=== PATIENT | male | born 1960 | race Caucasian/White ===

== ENCOUNTER → 2018-06-05 13:37 | Outpatient (CLI) | payer OTHER, SELFPAY ==
[2018-06-05 15:17] LABS: Alanine Aminotransferase 38 IU/L (21-72); Albumin 4.5 g/dL (3.5-5.0); Albumin Globulin Ratio 1.5 (1.0-2.8); Alkaline Phosphatase 79 U/L (38-126); Aspartate Aminotransferase 28 IU/L (17-59); BUN Creatinine Ratio 13.6 (6-22); Bilirubin Total 0.7 mg/dL (0.2-1.3); Blood Urea Nitrogen 15 mg/dL (9-20); Calcium 9.7 mg/dL (8.4-10.2); Carbon Dioxide 31 mmol/L (22-32); Chloride 101 mmol/L (98-107); Estimated Glomerular Filt Rate > 60.0 mL/min (>60); Globulin 3.1 g/dL (1.7-4.1); Glucose 90 mg/dL (70-100); HEMOLYSIS < 15 (0-50); Potassium 4.6 mmol/L (3.4-5.1); Sodium 145 mmol/L (137-145); Total Protein 7.6 g/dL (6.3-8.2)
[2018-06-05 15:39] LABS: Hemoglobin A1C% w Est Avg Glu 9.3 % (4.0-6.0)
== END ==
PROVIDERS: Visit Provider Internal Medicine
DX: E11.649 Type 2 diabetes mellitus with hypoglycemia without coma (principal)
CPT/HCPCS: 36415; 80053; 83036

== ENCOUNTER → 2018-10-26 13:19 | Outpatient (CLI) | payer OTHER, SELFPAY ==
[2018-10-26 17:17] LABS: Hemoglobin A1C% w Est Avg Glu 9.1 % (4.0-6.0)
== END ==
PROVIDERS: Visit Provider Internal Medicine
DX: E11.8 Type 2 diabetes mellitus with unspecified complications (principal)
CPT/HCPCS: 36415; 83036

== ENCOUNTER → 2019-01-22 13:18 | Outpatient (CLI) | payer OTHER, SELFPAY ==
[2019-01-22 14:08] LABS: Hemoglobin A1C% w Est Avg Glu 10.1 % (4.0-6.0)
[2019-01-22 14:40] LABS: BUN Creatinine Ratio 12.7 (6-22); Blood Urea Nitrogen 14 mg/dL (9-20); Calcium 9.5 mg/dL (8.4-10.2); Carbon Dioxide 31 mmol/L (22-32); Chloride 99 mmol/L (98-107); Cholesterol 183 mg/dL (140-199); Estimated Glomerular Filt Rate > 60.0 mL/min (>60); Glucose 187 mg/dL (70-100); HDL Cholesterol 34 mg/dL (40-60); HEMOLYSIS < 15 (0-50); LDL Cholesterol Calculated 89 mg/dL (<100); Potassium 4.7 mmol/L (3.4-5.1); Sodium 138 mmol/L (137-145); Triglycerides 299 mg/dL (35-150)
== END ==
PROVIDERS: Visit Provider Internal Medicine
DX: E78.5 Hyperlipidemia, unspecified (principal); E11.8 Type 2 diabetes mellitus with unspecified complications
CPT/HCPCS: 36415; 80048; 80061; 83036

== ENCOUNTER → 2020-08-01 15:01 | Outpatient (CLI) | payer OTHER, MEDICAID, SELFPAY ==
[2020-08-10 05:10] LABS: Varicella Zoster PCR Positive (Negative)
== END ==
PROVIDERS: Visit Provider Physician Assistant
DX: H57.89 Other specified disorders of eye and adnexa (principal); R21 Rash and other nonspecific skin eruption
CPT/HCPCS: 87070; 87075; 87077; 87186; 87205; 87252; 87798

== ENCOUNTER → 2020-11-02 13:01 | Outpatient (CLI) | payer OTHER, MEDICAID, SELFPAY ==
[2020-11-02] MEDS: COVID-19 VACC, Ad26(JANSSEN)/PF 0.5 ML IM (13:32)
== END ==
PROVIDERS: Visit Provider Internal Medicine
DX: Z23 Encounter for immunization (principal)
CPT/HCPCS: 0031A; 91303

== ENCOUNTER 2020-12-28 10:20 | Emergency (ER) | payer OTHER, MEDICAID, SELFPAY ==
[2020-12-28] VITALS (11 sets, daily range): BP systolic 131–157; BP diastolic 71–96; PULSE 79–92; RESP 13–30; TEMP 37.1; O2SAT 98–100; BMI 27.3
--- NOTE | 2020-12-28 10:32 | ED.GENADULT ---
HPI - General Adult General Chief complaint: Neuro Symptoms/Deficit Stated complaint: stroke Time Seen by Provider: 12/28/20 10:21 Source: patient Mode of arrival: Ambulatory Limitations: no limitations History of Present Illness HPI narrative: Patient is a 60-year-old male who med 3 days ago was seen at an outside facility for evaluation of dizziness and slurred speech. During that visit he was evaluated for stroke. Had a CT scan and an MRI which did show a nonocclusive thrombus in the proximal M1 segment of the left middle cerebral artery. He was not a candidate for tPA. His NIH score was recorded as is 0 at that visit. Stroke Neurology was consulted. He was recommended that he be admitted to the hospital however the patient did leave against medical advice. He was started on aspirin and Plavix and atorvastatin. Patient states that he was feeling well after discharge even up until last evening. Went to bed last evening feeling normal however woke up this morning with problems speaking. He tried to contact his primary doctor whom he has an appointment with tomorrow however could not speak and so was advised to come to the emergency department. Other than problems speaking he denies any other associated symptoms. He states he woke up this morning with the symptoms. Related Data Home Medications Medication Instructions Recorded Confirmed gabapentin 300 mg PO BID #0 07/16/17 multivitamin [Multiple Vitamins] 1 tab PO QDAY #0 07/16/17 Previous Rx's Medication Instructions Recorded acetaminophen 0 mg PO Q4HP PRN #30 tab 07/23/17 ampicillin-sulbactam [Unasyn] 3 gm IV Q6H 7 Days #0 ml 07/23/17 glipizide [Glucotrol XL] 5 mg PO [facility] #30 tab 07/23/17 metformin [Glucophage XR] 1,000 mg PO BID #60 tab 07/23/17 Allergies Allergy/AdvReac Type Severity Reaction Status Date / Time No Known Drug Allergies Allergy Verified 12/28/20 10:34 Review of Systems Constitutional Constitutional: Denies headache(s) Eyes Eyes: Reports change in vision (Some change of vision of his left eye) ENT Ears, Nose, Mouth, and Throat: Denies vertigo, Denies dizziness, Denies headache(s), Denies disequilibrium and Denies sore throat Cardiovascular Cardiovascular: Denies chest pain, Denies syncope and Denies dyspnea Respiratory Respiratory: Denies dyspnea Gastrointestinal Gastrointestinal: Denies abdominal pain, Denies nausea and Denies vomiting Genitourinary Genitourinary: Denies dysuria Genitourinary: Denies dysuria Musculoskeletal Musculoskeletal: Denies arthralgias Integumentary/Breasts Skin/Breast: Denies rash Neurologic Neurologic: Reports abnormal speech, Denies confusion, Denies vertigo, Denies dizziness, Denies syncope, Denies headache(s) and Denies disequilibrium Psychiatric Psychiatric: Denies confusion Hematologic/Lymphatic On Anticoagulants: No Patient History Medical History Shingles of eyelid Social History Smoking Status: Unknown if ever smoked Exam Initial Vital Signs Initial Vital Signs: Vital Signs Pulse Rate 92 H 12/28/20 10:24 Respiratory Rate 20 12/28/20 10:24 Blood Pressure 143/96 H 12/28/20 10:24 Pulse Oximetry 99 12/28/20 10:24 Const General: cooperative and comfortable Limitations: mental status not altered HENW[place] Head: normal to inspection and normocephalic Nose: external nose normal Mouth: oral mucosae normal Eyes Pupils: PERRL Resp Effort & Inspection: normal respiratory effort Auscultation: clear to auscultation bilaterally Cardio Rate: regular rate Rhythm: regular rhythm GI Inspection: non-distended Palpation: soft Skin Lesions: no lesions Rashes: no rashes Neuro General: patient alert, patient awake and patient oriented x3 Speech: abnormal speech Motor: muscle tone normal throughout Sensory Exam: no sensory deficits noted Extrem General: capillary refill normal Psych Appearance: grossly normal and well kempt Scores GCS Weston coma scale eye opening: Spontaneous Weston coma scale verbal response: Orientated Dandy coma scale motor response: Obey commands Weston coma scale total score: 15 NIH Stroke Scale Level of Conciousness: Alert, keenly responsive Ask month/age: Answers both questions correctly. Open/close eyes, close hand: Performs both tasks correctly Best gaze horizontal: Normal Visual [place]: No visual loss Facial palsy: Minor paralysis, flattened nasolabial fold, asymmetry on smiling Left arm drift: No drift for full 10 sec Right arm drift: No drift for full 10 sec Left leg drift: No drift for full 5 sec Right leg drift: No drift for full 5 sec Limb ataxia: Absent Sensory on face/arms/legs: Normal, no sensory loss Best language: Mild to moderate, slurs some words Dysarthria: Mild to mod,some slurring Extinction or inattention: No abnormality Total NIH Stroke scale score: 3 Course Orders Ordered: ED Orders 12/28/20 10:34 EKG-12 Lead Stat 12/28/20 10:37 CT head/brain wo con Stat 12/28/20 10:38 CT angio head and neck Stat 12/28/20 10:41 COVID19 - ADMIT (CUFF SETTER OVERLOCK swab/PCR) Stat 12/28/20 10:45 Ammonia (NH3) Stat Complete Blood Count AUTO DIFF Stat Comprehensive Metabolic Panel Stat Ethanol (ETOH) Stat Lipase Stat Partial Thromboplastin Time Stat Prothrombin Time INR Stat Thyroid Stimulating Hormone Stat Troponin & CK Cardiac Panel Stat 12/28/20 13:20 Urinalysis and Microscopic Stat Urine Drug Screen, Rapid Stat Discontinued Medications Aspirin (Aspirin 81 Mg Chew Tab) 324 mg PO NOW ONE Stop: 12/28/20 13:41 Last Admin: 12/28/20 13:47 Dose: 324 mg Documented by: MILES Clopidogrel Bisulfate (Clopidogrel 75 Mg Tablet) 300 mg PO NOW ONE Stop: 12/28/20 13:41 Last Admin: 12/28/20 13:47 Dose: 300 mg Documented by: MILES Vital Signs Vital signs: Vital Signs - 8 hr 12/28/20 10:24 12/28/20 10:25 12/28/20 10:30 Temperature 98.7 F Pulse Rate 92 H 85 86 Respiratory Rate 20 14 20 Blood Pressure 143/96 H 143/96 H 151/90 H Pulse Oximetry 99 100 100 12/28/20 11:00 12/28/20 11:03 12/28/20 11:30 Temperature Pulse Rate 82 79 80 Respiratory Rate 15 13 22 Blood Pressure 157/77 H 154/77 H 131/71 Pulse Oximetry 98 99 99 12/28/20 12:00 12/28/20 12:30 12/28/20 12:34 Temperature Pulse Rate 81 79 86 Respiratory Rate 16 13 30 H Blood Pressure 132/73 155/88 H Pulse Oximetry 98 99 99 12/28/20 13:00 12/28/20 13:30 Temperature Pulse Rate 82 82 Respiratory Rate 14 15 Blood Pressure 143/87 H Pulse Oximetry 99 98 Medical Decision Making Medical Records Medical records reviewed: Yes I reviewed the patient's medical records. Lab Data Lab results reviewed: Yes I reviewed the patient's lab results. Result diagrams: 12/28/20 10:45 12/28/20 10:45 Labs: Lab Results 12/28/20 12/28/20 12/28/20 Range/Units 10:41 10:45 10:45 WBC 5.8 (4.5-11.0) X10^3/uL RBC 4.73 (4.5-5.9) X10^6/uL Hgb 14.6 (13.5-17.5) g/dL Hct 42.4 (41-53) % MCV 89.5 (80-100) fL MCH 30.8 (26-34) PG MCHC 34.4 (30-36) % RDW 12.3 (11.6-14.8) % Plt Count 292 (150-400) X10^3/uL Neut % (Auto) 51.0 (50-75) % Lymph % (Auto) 35.7 (25-40) % [place] % (Auto) 8.8 (3-14) % Eos % (Auto) 3.7 (2-4) % Baso % (Auto) 0.8 (0-2) % Neut # (Auto) 2900 (3289-6117) /uL Lymph # (Auto) 2100 (3745-3851) /uL [place] # (Auto) 500 (0-900) /uL Eos # (Auto) 200 (0-450) /uL Baso # (Auto) 0 (0-100) /uL PT (10.1-12.7) SECONDS INR (0.9-1.3) APTT (26.4-36.2) SECONDS Sodium 137 (137-145) mmol/L Potassium 3.9 (3.4-5.1) mmol/L Chloride 99 (98-107) mmol/L Carbon Dioxide 28 (22-32) mmol/L BUN 16 (9-20) mg/dL Creatinine 1.13 (0.66-1.25) mg/dL Estimated GFR > 60.0 (>60) mL/min BUN/Creatinine Ratio 14.2 (6-22) Glucose 259 H (80-110) mg/dL Calcium 9.7 (8.4-10.2) mg/dL Total Bilirubin 0.6 (0.2-1.3) mg/dL AST 22 (17-59) IU/L ALT 16 (<50) IU/L Alkaline Phosphatase 73 (38-126) U/L Ammonia (9-30) umol/L Total Creatine Kinase (55-170) U/L CK-MB (CK-2) CK-MB (CK-2) Rel Index Troponin I (0.01-0.034) ng/mL Total Protein 7.8 (6.3-8.2) g/dL Albumin 4.3 (3.5-5.0) g/dL Globulin 3.5 (1.7-4.1) g/dL Albumin/Globulin Ratio 1.2 (1.0-2.8) Lipase (23-300) U/L TSH (0.47-4.68) uIU/mL Urine Color Urine Appearance Urine pH (4.5-8.0) Ur Specific [place] (1.000-1.035) Urine Protein (Negative) Urine Glucose (UA) (Negative) g/dL Urine Ketones (NEGATIVE) Urine Occult Blood (Negative) Urine Nitrate (Negative) Urine Bilirubin (NEGATIVE) Urine Urobilinogen (0.2) E.U./dL Ur Leukocyte Esterase (NEGATIVE) Urine RBC (0-5/HPF) Urine WBC (0-5/HPF) Urine Bacteria (None) Ur Culture Indicated? U Opiates 300ng/mL cut (Negative) Ur Oxycodone Screen (Negative) Urine Methadone Screen (Negative) Ur Barbiturates Screen (Negative) U Tricyclic Antidepress (Negative) Ur Phencyclidine Scrn (Negative) Ur Amphetamines Screen (Negative) U Methamphetamines Scrn (Negative) Ur MDMA Scrn (Ecstasy) (Negative) U Benzodiazepines Scrn (Negative) Urine Cocaine Screen (Negative) U Marijuana (THC) Screen (Negative) Ethyl Alcohol ( - 10) mg/dL SARS-CoV-2 (PCR) Negative (Negative) 12/28/20 12/28/20 12/28/20 Range/Units 10:45 10:45 10:45 WBC (4.5-11.0) X10^3/uL RBC (4.5-5.9) X10^6/uL Hgb (13.5-17.5) g/dL Hct (41-53) % MCV (80-100) fL MCH (26-34) PG MCHC (30-36) % RDW (11.6-14.8) % Plt Count (150-400) X10^3/uL Neut % (Auto) (50-75) % Lymph % (Auto) (25-40) % [place] % (Auto) (3-14) % Eos % (Auto) (2-4) % Baso % (Auto) (0-2) % Neut # (Auto) (4192-3749) /uL Lymph # (Auto) (3953-5243) /uL [place] # (Auto) (0-900) /uL Eos # (Auto) (0-450) /uL Baso # (Auto) (0-100) /uL PT 11.5 (10.1-12.7) SECONDS INR 1.0 (0.9-1.3) APTT 38 H (26.4-36.2) SECONDS Sodium (137-145) mmol/L Potassium (3.4-5.1) mmol/L Chloride (98-107) mmol/L Carbon Dioxide (22-32) mmol/L BUN (9-20) mg/dL Creatinine (0.66-1.25) mg/dL Estimated GFR (>60) mL/min BUN/Creatinine Ratio (6-22) Glucose (80-110) mg/dL Calcium (8.4-10.2) mg/dL Total Bilirubin (0.2-1.3) mg/dL AST (17-59) IU/L ALT (<50) IU/L Alkaline Phosphatase (38-126) U/L Ammonia < 9 L (9-30) umol/L Total Creatine Kinase 57 (55-170) U/L CK-MB (CK-2) TNP CK-MB (CK-2) Rel Index TNP Troponin I 0.016 (0.01-0.034) ng/mL Total Protein (6.3-8.2) g/dL Albumin (3.5-5.0) g/dL Globulin (1.7-4.1) g/dL Albumin/Globulin Ratio (1.0-2.8) Lipase 62 (23-300) U/L TSH (0.47-4.68) uIU/mL Urine Color Urine Appearance Urine pH (4.5-8.0) Ur Specific Mason (1.000-1.035) Urine Protein (Negative) Urine Glucose (UA) (Negative) g/dL Urine Ketones (NEGATIVE) Urine Occult Blood (Negative) Urine Nitrate (Negative) Urine Bilirubin (NEGATIVE) Urine Urobilinogen (0.2) E.U./dL Ur Leukocyte Esterase (NEGATIVE) Urine RBC (0-5/HPF) Urine WBC (0-5/HPF) Urine Bacteria (None) Ur Culture Indicated? U Opiates 300ng/mL cut (Negative) Ur Oxycodone Screen (Negative) Urine Methadone Screen (Negative) Ur Barbiturates Screen (Negative) U Tricyclic Antidepress (Negative) Ur Phencyclidine Scrn (Negative) Ur Amphetamines Screen (Negative) U Methamphetamines Scrn (Negative) Ur MDMA Scrn (Ecstasy) (Negative) U Benzodiazepines Scrn (Negative) Urine Cocaine Screen (Negative) U Marijuana (THC) Screen (Negative) Ethyl Alcohol < 10 ( - 10) mg/dL SARS-CoV-2 (PCR) (Negative) 12/28/20 12/28/20 12/28/20 Range/Units 10:45 13:20 13:20 WBC (4.5-11.0) X10^3/uL RBC (4.5-5.9) X10^6/uL Hgb (13.5-17.5) g/dL Hct (41-53) % MCV (80-100) fL MCH (26-34) PG MCHC (30-36) % RDW (11.6-14.8) % Plt Count (150-400) X10^3/uL Neut % (Auto) (50-75) % Lymph % (Auto) (25-40) % [place] % (Auto) (3-14) % Eos % (Auto) (2-4) % Baso % (Auto) (0-2) % Neut # (Auto) (4158-5337) /uL Lymph # (Auto) (4848-3977) /uL [place] # (Auto) (0-900) /uL Eos # (Auto) (0-450) /uL Baso # (Auto) (0-100) /uL PT (10.1-12.7) SECONDS INR (0.9-1.3) APTT (26.4-36.2) SECONDS Sodium (137-145) mmol/L Potassium (3.4-5.1) mmol/L Chloride (98-107) mmol/L Carbon Dioxide (22-32) mmol/L BUN (9-20) mg/dL Creatinine (0.66-1.25) mg/dL Estimated GFR (>60) mL/min BUN/Creatinine Ratio (6-22) Glucose (80-110) mg/dL Calcium (8.4-10.2) mg/dL Total Bilirubin (0.2-1.3) mg/dL AST (17-59) IU/L ALT (<50) IU/L Alkaline Phosphatase (38-126) U/L Ammonia (9-30) umol/L Total Creatine Kinase (55-170) U/L CK-MB (CK-2) CK-MB (CK-2) Rel Index Troponin I (0.01-0.034) ng/mL Total Protein (6.3-8.2) g/dL Albumin (3.5-5.0) g/dL Globulin (1.7-4.1) g/dL Albumin/Globulin Ratio (1.0-2.8) Lipase (23-300) U/L TSH 1.69 (0.47-4.68) uIU/mL Urine Color Yellow Urine Appearance Clear Urine pH 7.0 (4.5-8.0) Ur Specific [place] 1.010 (1.000-1.035) Urine Protein Negative (Negative) Urine Glucose (UA) 1+ H (Negative) g/dL Urine Ketones Negative (NEGATIVE) Urine Occult Blood Negative (Negative) Urine Nitrate Negative (Negative) Urine Bilirubin Negative (NEGATIVE) Urine Urobilinogen 0.2 (0.2) E.U./dL Ur Leukocyte Esterase Negative (NEGATIVE) Urine RBC None seen (0-5/HPF) Urine WBC 0-1/hpf (0-5/HPF) Urine Bacteria None seen (None) Ur Culture Indicated? Cult not indicated U Opiates 300ng/mL cut Negative (Negative) Ur Oxycodone Screen Negative (Negative) Urine Methadone Screen Negative (Negative) Ur Barbiturates Screen Negative (Negative) U Tricyclic Antidepress Negative (Negative) Ur Phencyclidine Scrn Negative (Negative) Ur Amphetamines Screen Negative (Negative) U Methamphetamines Scrn Negative (Negative) Ur MDMA Scrn (Ecstasy) Negative (Negative) U Benzodiazepines Scrn Negative (Negative) Urine Cocaine Screen Negative (Negative) U Marijuana (THC) Screen Negative (Negative) Ethyl Alcohol ( - 10) mg/dL SARS-CoV-2 (PCR) (Negative) Imaging Data CT scan - head: Radiologist's Impression: [address] [id number] Scan ReportSigned Patient: Gibran Phillips#: [id number]: 1960cct:[id number]/Sex: 60 / MDate of Service: 12/28/20Loc: EDAccession Number: [id number] Procedure: CT head/brain wo con Ordering Provider: Vitaly Llamas D.O. PROCEDURE: CT HEAD/BRAIN WO CON INDICATIONS: Dysarthria/dysphagia TECHNIQUE: Noncontrast 4.5 mm thick angled axial sections acquired from the foramen magnum to the vertex, with coronal and sagittal reformats. For radiation dose reduction, the following was used: automated exposure control, adjustment of mA and/or kV according to patient size. COMPARISON: [facility], CT, CT HEAD TPA, 12/26/2020, 9:40. [facility], MR, MR BRAIN WITH/WITHOUT CONTRAST, 12/26/2020, 9:59. FINDINGS: Image quality: Excellent. CSF spaces: Basal cisterns are patent. No extra-axial fluid collections. The ventricles are symmetric in size and shape. Brain: Hypodensities noted in the left johnson radiata and left caudate body concerning for subacute infarcts. No intracranial bleeds or masses. There is cerebral volume loss for age, with resultant ventricular and sulcal prominence. There are periventricular and deep white matter chronic small vessel ischemic changes. There is intracranial internal carotid artery atherosclerosis. Skull and face: Calvarium and visualized facial bones appear intact, without suspicious lesions. Sinuses: Visualized sinuses and mastoids are clear. IMPRESSION: 1. Probable subacute infarcts involving the left johnson radiata and left caudate body which are new compared to prior CT and MRI scans. Recommend MRI of the brain for further evaluation. 2. No intracranial hemorrhage. Dictated by: Do Hughes MD, PhD on 12/28/2020 at 11:14 Approved by: Do Hughes MD, PhD on 12/28/2020 at 11:16 CTA - brain/neck: Radiologist's Impression: [address] [id number] Scan ReportSigned Patient: Gibran Phillips#: [id number]: 1960cct:[id number]/Sex: 60 / MDate of Service: 12/28/20Loc: EDAccession Number: [id number] Procedure: CT angio head and neck Ordering Provider: Vitaly Llamas D.O. PROCEDURE: CT ANGIO HEAD AND NECK INDICATIONS: Right-side facial drop, dysarthria/dysphagia TECHNIQUE: Pre-contrast 4.5 mm thick sections acquired from the foramen magnum to the vertex. After the administration of intravenous contrast, 1 mm thick sections acquired from the aortic arch through the [place]. Post-contrast 4.5 mm thick sections then re-acquired from the foramen magnum to the vertex. 3-dimensional oiprstx-dploxtaxw-[id number] (MIP) and/or volume rendering reformats were acquired of the central intracranial vasculature and neck separately. COMPARISON: [facility], CT, CT ANGIO HEAD AND NECK, 12/26/2020, 9:40. [facility], CT, CT HEAD TPA, 12/26/2020, 9:40. [facility], CT, CT HEAD/BRAIN WO CON, 12/28/2020, 10:40. [facility], MR, MR BRAIN WITH/WITHOUT CONTRAST, 12/26/2020, 9:59. FINDINGS: Image quality: Excellent. BRAIN postcontrast: CSF spaces: Ventricles are normal in size and shape. Basal cisterns are patent. No extra-axial fluid collections. Brain: No midline shift. No intracranial bleeds or masses. Estrada-white matter interface appears intact. Left frontal hypodensity corresponding with the diffusion abnormality on the prior MRI is now larger measuring 1 cm. No intracranial hemorrhage. Skull and face: Calvarium and facial bones appear intact, without suspicious lesions. Orbits appear normal. Sinuses: Sinuses and mastoids are clear. HEAD CT ANGIOGRAPHY: Anterior circulation: Moderate calcified atherosclerotic plaque noted involving the cavernous portions of both internal carotid arteries results in moderate right and mild left stenosis, similar to the prior. Intracranial internal carotid arteries are normal in size and flow. The flow within the paired anterior cerebral arteries is normal and symmetric. 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 The distal A2 LEDYI segments are widely patent. In the proximal left M1 MCA, there is a 5 mm segment of near occlusion with rapid reconstitution which is similar to the prior. Distal branches of the MCA are patent. Left Posterior circulation: The right vertebral artery is diminutive and terminates in the right posterior inferior cerebellar artery. Left vertebral artery supplies widely patent basilar artery. Flow within the posterior cerebral arteries is normal and symmetric. No aneurysms are seen. NECK CT ANGIOGRAPHY: Carotid system: The great vessels demonstrate a conventional anatomy as they arise from the aortic arch. The origins of the common carotid arteries appear patent. The common carotid arteries demonstrate normal caliber and courses. The bifurcation regions are both widely patent. The internal carotid arteries demonstrate normal calibers and courses. Posterior circulation: The origins of the vertebral arteries both appear widely patent. And there is left vertebral artery dominance, in the right vertebral artery is diminutive. The more superior extracranial portions of both vertebral arteries also demonstrate normal courses and calibers. Soft tissues: Visualized neck soft tissues demonstrate no suspicious abnormalities. Bones: No suspicious bony lesions. Visualized cervical spine appears normally aligned. IMPRESSION: 1. Left M1 MCA pre occlusive/occlusive with immediate reconstitution stenosis noted over 5 mm is stable from the prior exam. 2. Right cavernous ICA atherosclerotic moderate to severe stenosis, stable from prior 3. Left frontal white matter subacute infarct now measures 1 cm, larger from the prior Critical results were discussed with Dr. Llamas at 11:04 a.m. [place] time 12/28/2020 Any quantitative measurements of stenosis were performed using NASCET criteria. Dictated by: Jose Manuel Muller M.D. on 12/28/2020 at 10:25 Approved by: Jose Manuel Muller M.D. on 12/28/2020 at 11:05 ECG Data Attestation: I personally reviewed and interpreted this ECG as follows: Prior ECG tracings: not available for review Interpretation: Sinus rhythm Ventricular rate of 80 Normal axis QRS 1 for [address] T wave changes Normal QTC MDM Narrative Medical decision making narrative: Patient's last known normal was last night. He woke up this morning with the symptoms. Apparently he had very similar symptoms 3 days ago and was seen at an outside facility where it was found that he was having an acute CVA with a M1 partial occlusion. He was recommended that he be admitted the hospital but the patient left against medical advice. He was told to start on a statin, aspirin, Plavix. He states that he has not started these medications to this point. Patient arrived outside the window for tPA. Initial NIH score was 3. He had minimal if any improvement during his time here in the emergency department. His head CT and CTA today were able to be compared by Radiology and the M1 occlusion was still present and does not seem to be worse than a couple days ago however there seems to be worsening infarct. I did discuss the case with tele stroke who performed her own exam through the remote System. She agreed with no tPA. She also agreed that patient was not code IR candidate. I did discuss the case with Dr. Sanchez with [facility] critical care who accepts the patient for transport. Patient is currently stable for transport. I did discuss the diagnosis with him and the need for transfer and he expressed understanding and agreement. He was given aspirin and Plavix prior to transfer. Discharge Plan Departure Patient Disposition: [facility] Clinical Impression: CVA (cerebral vascular accident) Prescriptions: No Action gabapentin 100 MG capsule 300 mg PO BID Qty: 0 RF: 0 multivitamin [Multiple Vitamins] 1 EACH tablet 1 tab PO QDAY Qty: 0 RF: 0 glipizide [Glucotrol XL] 5 MG tablet extended release 24hr 5 mg PO AMCC Qty: 30 RF: 0 metformin [Glucophage XR] 500 MG tablet extended release 24 hr 1,000 mg PO BID Qty: 60 RF: 0 acetaminophen 325 MG tablet 0 mg PO Q4HP PRNQty: 30 RF: 0 ampicillin-sulbactam [Unasyn] 3 GM recon soln 3 gm IV Q6H 7 Days Qty: 0 RF: 0 Referrals: Miscellaneous,Doctor, [Non-Staff] -
--- NOTE | 2020-12-28 10:37 | DI.CT.S_ITS ---
PROCEDURE: CT HEAD/BRAIN WO CON INDICATIONS: Dysarthria/dysphagia TECHNIQUE: Noncontrast 4.5 mm thick angled axial sections acquired from the foramen magnum to the vertex, with coronal and sagittal reformats. For radiation dose reduction, the following was used: automated exposure control, adjustment of mA and/or kV according to patient size. COMPARISON: [facility], CT, CT HEAD TPA, 12/26/2020, 9:40. [facility], MR, MR BRAIN WITH/WITHOUT CONTRAST, 12/26/2020, 9:59. FINDINGS: Image quality: Excellent. CSF spaces: Basal cisterns are patent. No extra-axial fluid collections. The ventricles are symmetric in size and shape. Brain: Hypodensities noted in the left johnson radiata and left caudate body concerning for subacute infarcts. No intracranial bleeds or masses. There is cerebral volume loss for age, with resultant ventricular and sulcal prominence. There are periventricular and deep white matter chronic small vessel ischemic changes. There is intracranial internal carotid artery atherosclerosis. Skull and face: Calvarium and visualized facial bones appear intact, without suspicious lesions. Sinuses: Visualized sinuses and mastoids are clear. IMPRESSION: 1. Probable subacute infarcts involving the left johnson radiata and left caudate body which are new compared to prior CT and MRI scans. Recommend MRI of the brain for further evaluation. 2. No intracranial hemorrhage. Dictated by: Do Hughes MD, PhD on 12/28/2020 at 11:14 Approved by: Do Hughes MD, PhD on 12/28/2020 at 11:16
--- NOTE | 2020-12-28 10:38 | DI.CT.S_ITS ---
PROCEDURE: CT ANGIO HEAD AND NECK INDICATIONS: Right-side facial drop, dysarthria/dysphagia TECHNIQUE: Pre-contrast 4.5 mm thick sections acquired from the foramen magnum to the vertex. After the administration of intravenous contrast, 1 mm thick sections acquired from the aortic arch through the [place] of Diana. Post-contrast 4.5 mm thick sections then re-acquired from the foramen magnum to the vertex. 3-dimensional tdsoxlt-mlaiibnbx-xbuxmkoivu (MIP) and/or volume rendering reformats were acquired of the central intracranial vasculature and neck separately. COMPARISON: [facility], CT, CT ANGIO HEAD AND NECK, 12/26/2020, 9:40. [facility], CT, CT HEAD TPA, 12/26/2020, 9:40. [facility], CT, CT HEAD/BRAIN WO CON, 12/28/2020, 10:40. [facility], MR, MR BRAIN WITH/WITHOUT CONTRAST, 12/26/2020, 9:59. FINDINGS: Image quality: Excellent. BRAIN postcontrast: CSF spaces: Ventricles are normal in size and shape. Basal cisterns are patent. No extra-axial fluid collections. Brain: No midline shift. No intracranial bleeds or masses. Estrada-white matter interface appears intact. Left frontal hypodensity corresponding with the diffusion abnormality on the prior MRI is now larger measuring 1 cm. No intracranial hemorrhage. Skull and face: Calvarium and facial bones appear intact, without suspicious lesions. Orbits appear normal. Sinuses: Sinuses and mastoids are clear. HEAD CT ANGIOGRAPHY: Anterior circulation: Moderate calcified atherosclerotic plaque noted involving the cavernous portions of both internal carotid arteries results in moderate right and mild left stenosis, similar to the prior. Intracranial internal carotid arteries are normal in size and flow. The flow within the paired anterior cerebral arteries is normal and symmetric. 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 The distal A2 LEYDI segments are widely patent. In the proximal left M1 MCA, there is a 5 mm segment of near occlusion with rapid reconstitution which is similar to the prior. Distal branches of the MCA are patent. Left Posterior circulation: The right vertebral artery is diminutive and terminates in the right posterior inferior cerebellar artery. Left vertebral artery supplies widely patent basilar artery. Flow within the posterior cerebral arteries is normal and symmetric. No aneurysms are seen. NECK CT ANGIOGRAPHY: Carotid system: The great vessels demonstrate a conventional anatomy as they arise from the aortic arch. The origins of the common carotid arteries appear patent. The common carotid arteries demonstrate normal caliber and courses. The bifurcation regions are both widely patent. The internal carotid arteries demonstrate normal calibers and courses. Posterior circulation: The origins of the vertebral arteries both appear widely patent. And there is left vertebral artery dominance, in the right vertebral artery is diminutive. The more superior extracranial portions of both vertebral arteries also demonstrate normal courses and calibers. Soft tissues: Visualized neck soft tissues demonstrate no suspicious abnormalities. Bones: No suspicious bony lesions. Visualized cervical spine appears normally aligned. IMPRESSION: 1. Left M1 MCA pre occlusive/occlusive with immediate reconstitution stenosis noted over 5 mm is stable from the prior exam. 2. Right cavernous ICA atherosclerotic moderate to severe stenosis, stable from prior 3. Left frontal white matter subacute infarct now measures 1 cm, larger from the prior Critical results were discussed with Dr. Llamas at 11:04 a.m. [place] time 12/28/2020 Any quantitative measurements of stenosis were performed using NASCET criteria. Dictated by: Jose Manuel Muller M.D. on 12/28/2020 at 10:25 Approved by: Jose Manuel Muller M.D. on 12/28/2020 at 11:05
[2020-12-28 10:54] LABS: Add Manual Diff / Slide Review NO; Basophils Absolute Auto 0 /uL (0-100); Basophils Percent Auto 0.8 % (0-2); Eosinophils Absolute Auto 200 /uL (0-450); Eosinophils Percent Auto 3.7 % (2-4); Hematocrit 42.4 % (41-53); Hemoglobin 14.6 g/dL (13.5-17.5); Lymphocytes Absolute Auto 2100 /uL (1100-4500); Lymphocytes Percent Auto 35.7 % (25-40); Mean Corpuscular HGB Conc 34.4 % (30-36); Mean Corpuscular Hemoglobin 30.8 PG (26-34); Mean Corpuscular Volume 89.5 fL (80-100); Monocytes Absolute Auto 500 /uL (0-900); Monocytes Percent Auto 8.8 % (3-14); Neutrophils Absolute Auto 2900 /uL (1500-7000); Platelet Count 292 X10^3/uL (150-400); Red Blood Cell Count 4.73 X10^6/uL (4.5-5.9); Red Cell Distribution Width 12.3 % (11.6-14.8); White Blood Cell Count 5.8 X10^3/uL (4.5-11.0)
[2020-12-28 11:02] LABS: Prothrombin Time 11.5 SECONDS (10.1-12.7)
[2020-12-28 11:05] LABS: PTT Partial Thromboplastin Tim 38 SECONDS (26.4-36.2)
[2020-12-28 11:12] LABS: Ammonia (NH3) < 9 umol/L (9-30)
[2020-12-28 11:13] LABS: Alanine Aminotransferase 16 IU/L (<50); Albumin 4.3 g/dL (3.5-5.0); Albumin Globulin Ratio 1.2 (1.0-2.8); Alkaline Phosphatase 73 U/L (38-126); Aspartate Aminotransferase 22 IU/L (17-59); BUN Creatinine Ratio 14.2 (6-22); Bilirubin Total 0.6 mg/dL (0.2-1.3); Blood Urea Nitrogen 16 mg/dL (9-20); Calcium 9.7 mg/dL (8.4-10.2); Carbon Dioxide 28 mmol/L (22-32); Chloride 99 mmol/L (98-107); Estimated Glomerular Filt Rate > 60.0 mL/min (>60); Globulin 3.5 g/dL (1.7-4.1); Glucose 259 mg/dL (80-110); HEMOLYSIS < 15 (0-50); Potassium 3.9 mmol/L (3.4-5.1); Sodium 137 mmol/L (137-145); Total Protein 7.8 g/dL (6.3-8.2)
[2020-12-28 11:14] LABS: Creatine Kinase 57 U/L (55-170); Ethanol (ETOH) < 10 mg/dL; Lipase 62 U/L (23-300)
[2020-12-28 11:24] LABS: Troponin I 0.016 ng/mL (0.01-0.034)
[2020-12-28 11:52] LABS: COVID19 - ADMIT (NP swab/PCR) Negative (Negative)
[2020-12-28 11:53] LABS: Thyroid Stimulating Hormone 1.69 uIU/mL (0.47-4.68)
--- NOTE | 2020-12-28 12:46 | PC.NURSE ---
NIH stroke scale via Tele Strokle With Dr Radha Pompa MD, She recommends transfer to [facility] stroke warners for higher level of care. She is calling that hospital and will be in contact with our ER MD Dr Llamas. Pt in aggreement with recommendations. Will cont to monitor.
[2020-12-28 13:25] LABS: Bacteria Urine None Seen; RBC Urine None Seen (0-5/HPF)
[2020-12-28 13:31] LABS: UR Morphine/Opiate cutoff 300 Negative (Negative); Ur Creatinine Normal (Normal); Ur Specific Gravity Normal (Normal); Urine Amphetamines Negative (Negative); Urine Barbiturates Negative (Negative); Urine Benzodiazepines Negative (Negative); Urine Cocaine Negative (Negative); Urine MDMA Negative (Negative); Urine Methadone Negative (Negative); Urine Methamphetamines Negative (Negative); Urine Oxycodone Negative (Negative); Urine Phencyclidine Negative (Negative); Urine Tetrahydrocannabinol Negative (Negative); Urine Tricyclic Antidepressant Negative (Negative); Urine pH Normal (Normal)
[2020-12-28 13:35] LABS: Appearance Urine UA CLEAR; Bilirubin Urine UA NEGATIVE (NEGATIVE); Color Urine UA YELLOW; Glucose Urine UA 1+ g/dL (Negative); Ketones Urine UA NEGATIVE (NEGATIVE); Leukocyte Esterase Urine UA NEGATIVE (NEGATIVE); Nitrite Urine UA NEGATIVE (Negative); Occult Blood Urine UA NEGATIVE (Negative); Protein Urine UA NEGATIVE (Negative); Urobilinogen Urine UA 0.2 E.U./dL (0.2)
[2020-12-28] MEDS: CLOPIDOGREL 75 MG TABLET 300 MG PO (13:47)
[2020-12-28] MEDS: ASPIRIN 81 MG CHEW TAB 324 MG PO (13:47)
[2020-12-28 14:00] LABS: Culture Indicated Urine Cult Not Indicated; WBC Urine 0-1/HPF (0-5/HPF)
--- NOTE | 2020-12-28 15:25 | PC.NURSE ---
Report called to ROSALINDA Ge at [facility]. ICU [phone]
== END 2020-12-28 15:55 | disposition short-term general hospital (02) ==
PROVIDERS: Emergency Provider Emergency Medicine; PCP Family Medicine
DX: I63.9 Cerebral infarction, unspecified (principal); R13.10 Dysphagia, unspecified; Z20.822 Contact with and (suspected) exposure to COVID-19
CPT/HCPCS: 36415; 70450; 70496; 70498; 80053; 80305; 80320; 81001; 82140; 82550; 83690; 84443; 84484; 85025; 85610; 85730; 87635; 93005; 99284; 99285; C9803; Q9967

== ENCOUNTER 2021-01-30 08:40 | Outpatient (RCR) | payer OTHER, MEDICAID, SELFPAY ==
--- NOTE | 2021-01-30 17:56 | PT.OIE ---
Current Diagnoses Unspecified sequelae of cerebral infarction (01/30/21) Past Medical History (Last Reviewed 12/28/20 @ 10:42 by Vitaly Llamas DO) Shingles of eyelid Visit Care Team Role Provider Type Roel Mcintyre MD Attending Provider Non-Staff Primary Care Provider Referring Provider Specialty: Medical Address: [address] [facility] [facility], [place], [address] Email: Physical Therapy Initial Evaluation PT-OP-A Visit Information Start: 01/29/21 18:20 Freq: Status: Active Protocol: Document 01/30/21 09:06 LRN (Rec: 01/30/21 09:49 LRN [id number]) Out-Patient Physical Therapy Visit Information Visit Information Visit Type Initial Evaluation Visit Start Time 09:06 Visit Stop Time 09:46 Total Visit Minutes 40 Visit Number 1 Evaluation Information Evaluation Date 01/30/21 Precautions Precautions L CVA 01/27/21, 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 History of Current Condition Stroke 1 month ago, ambulanced to [facility] for 1 week (December 28-2020). Has regained a big part of speech; therefore must speak slowly. Right sided weakness; has slowed down a little bit on the R side (R hand dominant). Currently scheduled for Speech Therapy. Walks every other day from [place] to [address] and back (~8 blocks = 1.5-2 miles) . Prior Treatments and Tests None Treatment Goals Patient/Caregiver Goals Improve balance. Prior Functional Status Baseline Function- ADL's Independent Baseline Function- Mobility Modified Independent Baseline Function- Gait Walked daily 1/2-1 mile Baseline Function- Other No problem with balance. Current Functional Impairments (Reported) Functional Limitations- ADL's Not able to drive. Functional Limitations- Mobility/Gait Walks every other day 1.5-2 miles (not walking daily), sometimes stopping to rest. Catches R foot occasionally with walking, but no falls. Personal Factors Other Personal Factors That May Effect Rents a room with 2 room mates Therapy/Recovery . Amputated L foot of toes 4-5 in 06/2017. Dizzy every 3rd day randomly. PT-OP-D Balance Start: 01/29/21 18:20 Freq: Status: Active Protocol: Document 01/30/21 09:06 LRN (Rec: 01/30/21 09:49 LRN [id number]) Cody Balance Assessment Evaluation Sitting to Standing Ability Independent w/out Hands Unsupported Stance Safely- 2 minutes Sitting Unsupported, Feet on Floor Safely- 2 minutes Standing to Sitting Ability Independent, Uncontrolled Transfer Ability Safely, Minimal Hand Use Unsupported Stance- Eyes Closed Safely, 10 seconds Unsupported Stance- Eyes Open Independent, 1 minute Reaching Forward Standing Confidently, 10 inches Pick- Up Object From Floor Independent/Safe Look Behind Shoulder - Standing Turns Sideways Only Turning 360 Degrees Turns Bilateral, < 4 secs Unsupported Stance, Alternating Feet on (I)- 8 Steps in 20 secs Stair Unsupported Tandem Stance Balance Lost- Step/Stand Unilateral Leg Stance Lifts Leg/Unable to Hold Total Score Cody Total Score (out of 56 points) 44 Cody Impairment Rating 20 to 39% Impaired (Score 34- 44) PT-OP-J Posture/Palpation/Skin Start: 01/29/21 18:20 Freq: Status: Active Protocol: Document 01/30/21 09:06 LRN (Rec: 01/30/21 09:49 LRN [id number]) Posture Evaluation Comments Posture Comments Standing: Shoulders fwd & elevated, Head down, increased lordosis, slight sway back, PT-OP-Q Treatments Start: 01/29/21 18:20 Freq: Status: Active Protocol: Document 01/30/21 09:06 LRN (Rec: 01/30/21 09:49 LRN [id number]) Self-Care/Home Management Treatment Education Other Education Discussed results of evaluation, goals and plan of care. Pt agreeable. PT-OP-T Assessment and Plan Start: 01/29/21 18:20 Freq: Status: Active Protocol: Document 01/30/21 09:06 LRN (Rec: 01/30/21 09:49 LRN [id number]) Physical Therapy Assessment Rehab Potential Rehabilitation Potential Good Evaluation Complexity Number of Personal Factors/Comorbidities 1-2 Number of Body Systems Impaired 1-2 Clinical Presentation at Evaluation Stable Impairments Impairments Balance,Gait Goals Three Impairment Catching R toe with gait Finance Director Goal (LTG) Improve gait mechanics with reduction of R toe catching with gait. LTG Duration 04/30/21 Two Impairment Decr'd balance per CODY Balance score 44 (20 to 39% impaired, score 34-44) Short Term Goal (STG) Improve SLS to improve safety with gait. STG Duration 02/21/21 Finance Director Goal (LTG) Improve CODY Balance score of 45 or greater (1 to 19% impaired, score 45-55) LTG Duration 04/30/21 One Impairment Pt lacks appropriate HEP Fpc Goal (LTG) Pt will be independent with balance ex's and ex's to decrease pt's R toe catching with gait. LTG Duration 04/30/21 Assessment Summary Assessment Pt is a 60 yo male s/p R CVA on 12/26/20. He reports mild residual R sided weakness with his primary complaint of speech difficulty and balance. The pt would like therapy directed in these areas, therfore assessment of strength was delayed until next therapy session. The pt presents with decreased balance ability per CODY Balance assessment and he visibly with gait caught his toes 1x of 150 ft. The pt will benefit from skilled physical therapy to achieve the above stated goals. He is limited in his insurance coverage; therefore therapy will focus on having the pt on a self care HEP of balance ex 's and gait education. Physical Therapy Plan Frequency and Duration Frequency of Treatment 2x/Week Plan of Care Start Date 01/30/21 Plan of Care End Date 04/30/21 Therapeutic Interventions Therapeutic Interventions Balance Training,Coordination Training,Gait Training,Home Exercise Program,Patient/ Caregiver Education,Self-Care/ Home Management,Therapeutic Exercises Modalities Electric Stimulation Next Visit Focus/Plan Next Note Type Treatment Note Next Visit Plan Discuss POC/visits, assess R UE/LE strength, balance rehab program with HEP, gait training/coordination to prevent catching of toe with gait.
--- NOTE | 2021-01-30 17:56 | PT.OPPOC ---
Physical, Occupational & Speech Therapy At [facility] Current Diagnoses Unspecified sequelae of cerebral infarction (01/30/21) Visit Care Team Role Provider Type Roel Mcintyre MD Attending Provider Non-Staff Primary Care Provider Referring Provider Specialty: Medical Address: [address] [place], [address] Email: Plan Of Care PT-OP-T Assessment and Plan Start: 01/29/21 18:20 Freq: Status: Active Protocol: Document 01/30/21 09:06 LRN (Rec: 01/30/21 09:49 LRN [id number]) Physical Therapy Assessment Rehab Potential Rehabilitation Potential Good Evaluation Complexity Number of Personal Factors/Comorbidities 1-2 Number of Body Systems Impaired 1-2 Clinical Presentation at Evaluation Stable Impairments Impairments Balance,Gait Goals Three Impairment Catching R toe with gait Residential Goal (LTG) Improve gait mechanics with reduction of R toe catching with gait. LTG Duration 04/30/21 Two Impairment Decr'd balance per CODY Balance score 44 (20 to 39% impaired, score 34-44) Short Term Goal (STG) Improve SLS to improve safety with gait. STG Duration 02/21/21 Health Care Legal Assistant Goal (LTG) Improve CODY Balance score of 45 or greater (1 to 19% impaired, score 45-55) LTG Duration 04/30/21 One Impairment Pt lacks appropriate HEP Health Care Legal Assistant Goal (LTG) Pt will be independent with balance ex's and ex's to decrease pt's R toe catching with gait. LTG Duration 04/30/21 Assessment Summary Assessment Pt is a 60 yo male s/p R CVA on 12/26/20. He reports mild residual R sided weakness with his primary complaint of speech difficulty and balance. The pt would like therapy directed in these areas, therfore assessment of strength was delayed until next therapy session. The pt presents with decreased balance ability per CODY Balance assessment and he visibly with gait caught his toes 1x of 150 ft. The pt will benefit from skilled physical therapy to achieve the above stated goals. He is limited in his insurance coverage; therefore therapy will focus on having the pt on a self care HEP of balance ex 's and gait education. Physical Therapy Plan Frequency and Duration Frequency of Treatment 2x/Week Plan of Care Start Date 01/30/21 Plan of Care End Date 04/30/21 Therapeutic Interventions Therapeutic Interventions Balance Training,Coordination Training,Gait Training,Home Exercise Program,Patient/ Caregiver Education,Self-Care/ Home Management,Therapeutic Exercises Modalities Electric Stimulation Next Visit Focus/Plan Next Note Type Treatment Note Next Visit Plan Discuss POC/visits, assess R UE/LE strength, balance rehab program with HEP, gait training/coordination to prevent catching of toe with gait. Plan of Care Dates Plan of Care Start Date 01/30/21 Plan of Care End Date 04/30/21 Electronically Signed by: Malu Quach, PT 01/30/21 [id number] Please Sign and Return: I have reviewed this Plan of Care and certify that the skilled therapy services above are required to meet the patient?s needs. Physician Signature Date Printed Name and Credentials Clinical Instructor Signature Printed Name and Credentials
--- NOTE | 2021-09-24 13:01 | PT.OPDS ---
Current Diagnoses Unspecified sequelae of cerebral infarction (01/30/21) Muscle weakness (generalized) (01/30/21) Other abnormalities of gait and mobility (01/30/21) Visit Care Team Role Provider Type Roel Mcintyre MD Attending Provider Non-Staff Primary Care Provider Referring Provider Specialty: Medical Address: [address] [place], [address] Email: Visit Number Visit Number 1 Discharge Summary PT-OP-B Current Condition Start: 01/29/21 18:20 Freq: Status: Active Protocol: Document 01/30/21 09:06 LRN (Rec: 01/30/21 09:49 LRN [id number]) Current Condition History of Current Condition Onset Date 12/26/20 Current Complaints R sided weakness and decreased speech. History of Current Condition Stroke 1 month ago, ambulanced to [facility] for 1 week (December 28-2020). Has regained a big part of speech; therefore must speak slowly. Right sided weakness; has slowed down a little bit on the R side (R hand dominant). Currently scheduled for Speech Therapy. Walks every other day from [employer] to [address] and back (~8 blocks = 1.5-2 miles) . Prior Treatments and Tests None Treatment Goals Patient/Caregiver Goals Improve balance. Prior Functional Status Baseline Function- ADL's Independent Baseline Function- Mobility Modified Independent Baseline Function- Gait Walked daily 1/2-1 mile Baseline Function- Other No problem with balance. Current Functional Impairments (Reported) Functional Limitations- ADL's Not able to drive. Functional Limitations- Mobility/Gait Walks every other day 1.5-2 miles (not walking daily), sometimes stopping to rest. Catches R foot occasionally with walking, but no falls. Personal Factors Other Personal Factors That May Effect Rents a room with 2 room mates Therapy/Recovery . Amputated L foot of toes 4-5 in 06/2017. Dizzy every 3rd day randomly. PT-OP-D Balance Start: 01/29/21 18:20 Freq: Status: Active Protocol: Document 01/30/21 09:06 LRN (Rec: 01/30/21 09:49 LRN [id number]) Cody Balance Assessment Evaluation Sitting to Standing Ability Independent w/out Hands Unsupported Stance Safely- 2 minutes Sitting Unsupported, Feet on Floor Safely- 2 minutes Standing to Sitting Ability Independent, Uncontrolled Transfer Ability Safely, Minimal Hand Use Unsupported Stance- Eyes Closed Safely, 10 seconds Unsupported Stance- Eyes Open Independent, 1 minute Reaching Forward Standing Confidently, 10 inches Pick- Up Object From Floor Independent/Safe Look Behind Shoulder - Standing Turns Sideways Only Turning 360 Degrees Turns Bilateral, < 4 secs Unsupported Stance, Alternating Feet on (I)- 8 Steps in 20 secs Stair Unsupported Tandem Stance Balance Lost- Step/Stand Unilateral Leg Stance Lifts Leg/Unable to Hold Total Score Cody Total Score (out of 56 points) 44 Cody Impairment Rating 20 to 39% Impaired (Score 34- 44) PT-OP-J Posture/Palpation/Skin Start: 01/29/21 18:20 Freq: Status: Active Protocol: Document 01/30/21 09:06 LRN (Rec: 01/30/21 09:49 LRN [id number]) Posture Evaluation Comments Posture Comments Standing: Shoulders fwd & elevated, Head down, increased lordosis, slight sway back, PT-OP-T Assessment and Plan Start: 01/29/21 18:20 Freq: Status: Active Protocol: Document 09/24/21 12:58 LRN (Rec: 09/24/21 13:01 LRN [id number]) Physical Therapy Assessment Goals Three Impairment Catching R toe with gait [employer] Worker Goal (LTG) Improve gait mechanics with reduction of R toe catching with gait. LTG Duration 04/30/21 (NOT MET GOAL) Two Impairment Decr'd balance per CODY Balance score 44 (20 to 39% impaired, score 34-44) Short Term Goal (STG) Improve SLS to improve safety with gait. STG Duration 02/21/21 (NOT MET GOAL) Intermediate Goal (LTG) Improve CODY Balance score of 45 or greater (1 to 19% impaired, score 45-55) LTG Duration 04/30/21 (NOT MET GOAL) One Impairment Pt lacks appropriate HEP Intermediate Goal (LTG) Pt will be independent with balance ex's and ex's to decrease pt's R toe catching with gait. LTG Duration 04/30/21 (NOT MET GOAL) Assessment Summary Assessment Pt was only seen for his Initial Evaluation on 01/30/21, then due to transportation difficulty and cancel of appointments, he called on and requested discharge from physical therapy. Pt did not meet any of his goals. Physical Therapy Plan Discharge Physical Therapy Discharge Reasons Patient Request Discharge Comments Pt requested discharge on 02/12. Thank you for your referral.
== END 2021-09-25 08:13 ==
LOC: PHYS 08:40
PROVIDERS: PCP Family Medicine; Referring Provider Family Medicine; Visit Provider Family Medicine
DX: I69.30 Unspecified sequelae of cerebral infarction (principal); R26.89 Other abnormalities of gait and mobility; M62.81 Muscle weakness (generalized)
CPT/HCPCS: 97161

== ENCOUNTER 2021-02-09 13:08 | Outpatient (RCR) | payer OTHER, MEDICAID, SELFPAY ==
--- NOTE | 2021-02-09 16:50 | ST.OPIE ---
Visit Care Team Role Provider Type Roel Mcintyre MD Attending Provider Non-Staff Primary Care Provider Referring Provider Specialty: Medical Address: [address] [facility], [place], [address] Email: Speech-Language Pathology Initial Evaluation MEDIA LAW FACULTY MEMBER Adult Cognitive Linguistic Eval Start: 02/09/21 14:02 Freq: Status: Active Protocol: Document 02/09/21 14:13 LNK (Rec: 02/09/21 16:49 LNK [id number]) Adult Cognitive Linguistic Evaluation Session Time Visit Start Time 13:30 Visit Stop Time 14:30 Total Visit Minutes 60 Visit Information Visit Number 1 Insurance Information [employer] Referral Referring Provider Dr. Mcintyre Reason for Referral CVA Setting Assessment Location Outpatient Care Visit Type Note Type Initial evaluation Next Note Type Next Note Type Treatment Note Patient Information Identification Type Name,Date of Medical History Pt was seen for speech and language evaluation at the referral of Dr. Mcintyre, following a CVA on October 272020. Patient is a 60-year-old male who med 3 days ago was seen at an outside facility for evaluation of dizziness and slurred speech. During that visit he was evaluated for stroke. Had a CT scan and an MRI which did show a nonocclusive thrombus in the proximal M1 segment of the left middle cerebral artery. He was not a candidate for tPA . His NIH score was recorded as is 0 at that visit. Stroke Neurology was consulted. He was recommended that he be admitted to the hospital however the patient did leave against medical advice. He was started on aspirin and Plavix and atorvastatin. Patient states that he was feeling well after discharge even up until last evening. Went to bed last evening feeling normal however woke up this morning with problems speaking. He tried to contact his primary doctor whom he has an appointment with tomorrow however could not speak and so was advised to come to the emergency department. Pt was reported to have been transported to [facility] where he stayed for 1 week and was discharged. Subjective Patient Report Pt reported that he has been improving overall in his speech production and his ability to express himself. Assessment Oral Motor Examination Completed Yes Results OME indicated structures to be mildly reduced in speed and accuracy of movement. Strength and ROM was WFL. Diadochokinesis was slow and inaccurate. Informal Assessment Receptive Language Normal Yes Expressive Language Normal No Expressive Language Impairment(s) Confrontation naming,Divergent naming Pragmatic Language Normal Yes Speech Normal No Speech Impairment(s) Imprecise articulation,Slow speech rate,Hyponasality, Prosody/Intonation Cognition Normal No Cognitive Impairment(s) Short-term memory,Executive functioning,Problem solving, Reasoning Formal Assessment Standardized Test/Screener Type [facility] Mental Status (UMS) Administration Complete Results The pt reports memory challenges and word-finding difficulty. The SLUMS was completed with the results indicating a score of 20/30, which represents a mild- moderate cognitive skill impairment. The SLUMS noted the pt had difficulty with mental math (number reversal and mental computation). It is unknown if math skills were challenged premorbidly. He reported the year as 2000, named 11 animal words, correctly identified shape and size and correctly answered 4 /4 questions regarding a paragraph read to him. He was oriented to day and state, his and age. Findings/Results Language Function Mildly impaired Cognitive Function Mild-moderately impaired Cognitive Communication Deficits Self-awareness of Cognitive- Predictive awareness (able to Communication Deficits predict problem; impact of impairments) Impact on Functioning Activity Limits/Particip.Rest. Mild: General Tasks and Demands Household Tasks Interpersonal Interactions Mod: Employment Safety Risks Mild: Being Left Alone at Home Reacting to Emergency Managing Medication Prognosis Prognosis Good Based on Cognitive status,Duration of symptoms/severity,Time since onset Plan of Care Speech-Language Treatment Yes Short Term Goals Pt will demonstrate improvd mental math calculation skills at 75% accuracy Pt will recall words in conversation without disrupting flow of conversation ability per pt report MEDIA LAW FACULTY MEMBER Motor Speech Evaluation Start: 02/09/21 14:02 Freq: Status: Active Protocol: Document 02/09/21 14:13 LNK (Rec: 02/09/21 16:49 LNK [id number]) Motor Speech Evaluation Oral Motor Lips Function WFL Tongue Function Mild Impairment Lateralization slow Jaw Function WFL Soft Palate Function Mild Impairment Observations at rest symmetrical Symmetry WFL Sustained Elevation WFL Alternating elevation/relaxation During conversation pt's voice was observed to be mildly hypernasal Respiration/Phonation Phonation Quality WNL Loudness WNL Conversation Duration Mildly Impaired Diadochokinetic Rates P^ Quality Mild Impairment T^ Quality Mild Impairment K^ Quality Mild Impairment P^T^K^ Quality Mild Impairment Speech Intelligibility Awareness/Strategy Use Description Type of awareness/use Uses intermittently Findings Details Motor Speech Function Mild-Moderate Impairment Type of Impairment mild dysarthria with mild hypernasal vocal quality Assessment Details Assessment Pt presents with a mild dysarthria with mild aphasia (word-finding difficulty, paraphasias). Pt is aware of difficulty and will slow speech rate to increase intelligibility. Pt produces weak syllable deletion and a tendency to speak rapidly negatively impacting intelligibility. Spontaneous self-correction was observed frequently during the session. Prognosis Rehabilitation Potential Excellent Recommendations Treatment Recommended Yes Short Term Goals 1. pt will produce multisyllabic words intelligibly at the necessary slowed rate. 2. pt will produce common tongue twisters intelligibly at the necessary slowed rate. 3. Pt will increase rate of speaking while maintaining appropriate level of intelligibility at 85% accuracy Patient/Family Education Education Described results of evaluation,Patient Understanding,Patient Demonstration,Patient Needs More Info
--- NOTE | 2021-03-08 14:41 | ST.OPDS ---
Visit Care Team Role Provider Type Roel Mcintyre MD Attending Provider Non-Staff Primary Care Provider Referring Provider Address: [address] [facility], [place], [address] HOSPITALITY HOUSEKEEPER Treatment Note HOSPITALITY HOUSEKEEPER Treatment Note Start: 02/09/21 14:02 Freq: Status: Active Protocol: Document 03/08/21 13:21 LNK (Rec: 03/08/21 14:41 LNK [id number]) Speech Pathology Treatment Note Setting Treatment Setting Outpatient Care Visit Type Note Type Discharge Summary Next Note Type Next Note Type Discharge Summary General Information General Information Pt was seen for speech and language evaluation at the referral of Dr. Mcintyre, following a CVA on October 272020. Patient is a 60-year-old male who, 3 days ago, was seen at an outside facility for evaluation of dizziness and slurred speech. During that visit he was evaluated for stroke. Had a CT scan and an MRI which did show a nonocclusive thrombus in the proximal M1 segment of the left middle cerebral artery. He was not a candidate for tPA . His NIH score was recorded as is 0 at that visit. Stroke Neurology was consulted. He was recommended that he be admitted to the hospital however the patient did leave against medical advice. He was started on aspirin and Plavix and atorvastatin. Patient states that he was feeling well after discharge even up until last evening. Went to bed the prior evening feeling normal however woke up with problems speaking. He tried to contact his primary doctor whom he has an appointment with; however could not speak and so was advised to come to the emergency department. Pt was reported to have been transported to [facility] where he stayed for 1 week and was discharged. [ Subjective Chief Complaint(s) Speech,Language Objective Short Term Goals Pt will demonstrate improved mental math calculation skills at 75% accuracy Pt will recall words in conversation without disrupting flow of conversation abiloty per pt report Assessment Assessment of Improvement Pt did not show up for his appointment. He has no more scheduled appointments. Will discharge at this time.
== END 2021-03-09 12:57 | disposition home or self-care (01) ==
LOC: SP 13:08
PROVIDERS: PCP Family Medicine; Referring Provider Family Medicine; Visit Provider Family Medicine
DX: I69.30 Unspecified sequelae of cerebral infarction (principal)
CPT/HCPCS: 92523